=== PATIENT | female | born 1990 | race Caucasian/White ===

== ENCOUNTER 2022-10-14 09:42 | Emergency (ER) | payer MEDICAID ==
[~2022-10-14] VITALS: Ht 152.4 cm; Wt 64.0 kg
[2022-10-14 10:05] VITALS: BP 119/71
[2022-10-14] MEDS ORDERED: NACL 0.9% 1,000 ML IV ONE (10:55)
[2022-10-14] MEDS ORDERED: ACETAMINOPHEN 325 MG TAB PO ONE (10:55)
--- NOTE | 2022-10-14 11:08 | NUR ---
PT AMBULATED TO ER BED 5
[2022-10-14 11:15] LABS: BASOPHILS % (AUTO) 0.2 % (0.0-2.0); EOSINOPHILS % (AUTO) 0.1 % (0.0-4.0); HEMATOCRIT 33.2 % (36-48); HEMOGLOBIN 11.3 g/dL (12.0-16.0); LYMPHOCYTES # (AUTO) 1.4 K/uL (2.5-16.5); MEAN CORPUSCULAR HEMOGLOBIN 31 pg (27-31); MEAN CORPUSCULAR HGB CONC 34 g/dL (33-37); MEAN CORPUSCULAR VOLUME 89.5 fL (80-94); MONOCYTES # (AUTO) 0.8 K/uL (0.8-1.0); MONOCYTES % (AUTO) 10.6 % (1.7-9.3); NEUTROPHILS # (AUTO) 5.6 K/uL (1.8-7.7); NEUTROPHILS % (AUTO) 71.1 % (42.2-75.2); PLATELET COUNT (AUTO) 206 K/uL (140-450); RED BLOOD CELL COUNT(AUTO) 3.71 MIL/uL (4.20-5.40)
--- NOTE | 2022-10-14 11:30 | NUR ---
22YO FEMALE PT C/O INTERMITTENT CHEST PAIN , SORETHROAT AND CONGESTION XTODAY. REPORTS ONSET AFTER TAKING COLD SHOWER LAST NIGHT W/ CHEST PAIN ON COUGH. DRY COUGH PRESENT. PT CURRENTLY 18WEEK , SHILOH 02/11/23 LMP 06/13/22 .DENIES N/V/D, VAGINAL BLEEDING, FEVER, CHILLS , SOB OR ANYONE ELSE SICK AT HOME. PT AAOX4, NO VISIBLE DISTRESS. 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
[2022-10-14 11:33] LABS: ALBUMIN 2.8 g/dL (3.4-5.0); ANION GAP 15.8 (8-16); CARBON DIOXIDE 23.4 mmol/L (21-32); CREATININE 0.5 mg/dL (0.6-1.3); POTASSIUM 3.2 mmol/L (3.5-5.1); TOTAL BILIRUBIN 0.4 mg/dL (0.0-1.0)
--- NOTE | 2022-10-14 11:35 | NUR ---
PRESENTS TO ED WITH C/O INTERMITTENT CHEST PAIN, SORE THROAT AND CONGESTION SINCE LAST NIGHT. PATIENT STATES SHE TOOK A COLD SHOWER AND SYMPTOMS BEGAN SHORTLY AFTER. PATIENT DENIES SOB, FEVERS, CHILL OR RECENT SICK CONTACTS. PATIENT REPORTS SHE IS CURRENTLY 20 WEEKS , DENIES ABD PAIN, N/V/D, VAGINAL BLEEDING OR DISCHARGE.
--- NOTE | 2022-10-14 11:52 | NUR ---
pt swabbed for covid(mira) and flu. handed to lab
[2022-10-14 13:45] VITALS: BP 100/64
--- NOTE | 2022-10-14 13:48 | NUR ---
IV removed, catheter intact and site benign. Applied folded 4x4 gauze and tape to stop bleeding.
--- NOTE | 2022-10-14 13:50 | NUR ---
Patient discharged with v/s stable. Written and verbal after care instructions given and explained. Patient verbalized understanding. Ambulatory with steady gait. All questions addressed prior to discharge. Advised to follow up with PMD.
--- NOTE | 2022-10-14 14:00 | NUR ---
The patient's care was reviewed and supervised by Ling Chinchilla RN.
== END 2022-10-14 13:50 | disposition home or self-care (01) ==
LOC: MED 09:42
DX: O26.892 Other specified pregnancy related conditions, second trimester (principal); Z20.822 Contact with and (suspected) exposure to COVID-19; R07.89 Other chest pain; B34.9 Viral infection, unspecified; Z3A.20 20 weeks gestation of pregnancy
CPT/HCPCS: 36415; 80053; 83880; 84484; 85025; 93005; 96360; 99284